=== PATIENT | female | born 1980 | race Caucasian/White ===

== ENCOUNTER 2024-05-23 16:38 | Emergency (ER) | payer BC, SELFPAY ==
[2024-05-23] VITALS (7 sets, daily range): BP systolic 102–119; BP diastolic 59–68; PULSE 68–74; BMI 39.3
[2024-05-23] MEDS: NSS 1000 IV (18:20)
[2024-05-23 18:30] LABS: % Basophils 0.3 % (0-2); % Eosinophils 1.5 % (0-6); % Immature Granulocytes 0.4 % (0-0.5); % Lymphocytes 23.4 % (20.5-51.1); % Monocytes 7.1 % (1.7-9.3); % Neutrophils 67.3 % (42.2-75.2); Absolute Eosinophils 0.2 10^3/uL (0-0.7); Absolute Immature Granulocytes 0.1 10^3/uL (0-0.05); Absolute Lymphocytes 3.2 10^3/uL (1.2-3.4); Absolute Neutrophils 9.3 10^3/uL (1.4-6.5); Hematocrit 38.6 % (37.0-47.0); Hemoglobin 13.3 g/dL (12.0-16.0); Mean Corp Hgb Conc. 34.5 g/dL (33.0-37.0); Mean Corpuscular Hgb 31.1 pg (27.0-31.0); Mean Corpuscular Volume 90.4 fL (81.0-99.0); Mean Platelet Volume 9.9 fL (7.4-10.4); Nucleated Red Blood Cells % 0 %; Platelet Count 211 10^3/uL (130-400); Red Blood Cell Count 4.27 10^6/uL (4.20-5.40); Red Cell Dist. Width 12.4 % (11.5-14.5); White Blood Cell Count 13.8 10^3/uL (4.8-10.8)
[2024-05-23 18:43] LABS: HCG, Serum Qualitative Screen Negative
[2024-05-23 18:47] LABS: ALT (SGPT) 20 U/L (0-35); AST (SGOT) 20 U/L (14-36); Albumin 3.9 g/dl (3.5-5.0); Alkaline Phosphatase 62 U/L (38-126); Blood Urea Nitrogen 15 mg/dl (7-17); Calcium 9.1 mg/dl (8.4-10.2); Carbon Dioxide 24 mmol/L (22-30); Chloride 106 mmol/L (98-107); Estimated Creatinine Clearance 123 ml/min; Glucose 126 mg/dl (70-99); Sodium 137 mmol/L (135-145); Total Bilirubin 0.5 mg/dl (0.2-1.3); Total Protein 6.4 g/dl (6.3-8.2); eGFR > 60.00
--- NOTE | 2024-05-23 19:30 | ED.GENMED ---
History of Present Illness
General
Chief Complaint: Dizziness
Source: patient and spouse
Exam Limitations: none
Time Seen by Provider: 05/23/24 17:51
Nursing documentation reviewed up to this point in time: agreed with
History of Present Illness
History of Present Illness:
43-year-old female presenting to the emergency department today with concerns of 4 episodes of feeling lightheaded somewhat dizzy today made worse with changes in positioning. Has had similar episodes many times in the past. Was seen in urgent
care and sent to the ER today. Denies chest pain shortness breath or palpitations. Never fully lost consciousness.
Review of Systems
Review of Systems
Allergies reviewed?: Yes
All Other Systems: ROS reviewed and negative except as documented in HPI and ROS
Phy Exam
Physical Exam
Physical Exam:
GENERAL: Alert , in no apparent distress
EYE: pupils equal and reactive
NECK: Supple, no significant adenopathy.
ENT: o/p clr, mmm.
CARDIAC: Regular rate and rhythm .
LUNGS: Clear breath sounds bilaterally, no acute respiratory distress, no wheezes/rales/rhonchi
ABDOMEN: Soft, without focal tenderness, no r/g, no cvat
NEUROLOGICAL: Alert and oriented, no focal neuro deficits 5 out of 5 upper and lower extremity strength normal sensation when palpating bilaterally normal finger-nose and [id number] no pronator drift
SKIN: Warm and dry, skin intact.
MUSCULOSKELETAL: No edema, well perfused.
PSYCH: Normal and appropriate interaction.
Course
Orders/Labs/Results
Orders:
Orders
05/23/24 16:45
EKG [Electrocardiogram (*1)] Urgent
Reason for Study: Vertigo / Dizzy
EKG- Treatment ONCE
05/23/24 18:03
Cardiac Monitoring- Treatment ONCE
Orthostatic VS- Treatment ONCE
0.9% Sodium Chloride 1000 ml [Nss] 1,000 ml IV BOLUS
05/23/24 18:04
CT Head W/o Iv Contrast Urgent
Comment:
Reason For Exam: left sided head pain oressure, syncope
Test Result ONCE
05/23/24 18:19
Beta Hcg Serum Qualitative Screen [HCG, Serum Qualitative Screen] Urgent
CBC/With Diff [Complete Blood Count/With Diff] Urgent
CMP [Comprehensive Metabolic Panel] Urgent
Abnormal Lab Results
05/23/24
18:19
WBC 13.8 H 10^3/uL
(4.8-10.8)
MCH 31.1 H pg
(27.0-31.0)
Abs Immat Gran (auto) 0.1 H 10^3/uL
(0-0.05)
Absolute Neuts (auto) 9.3 H 10^3/uL
(1.4-6.5)
Absolute Monos (auto) 1.0 H 10^3/uL
(0.1-0.6)
Glucose 126 H mg/dl
(70-99)
05/23/24 18:19
05/23/24 18:19
Vital Signs
Initial and Last Documented VS:
Initial Vital Signs
Temp Pulse Resp BP Pulse Ox
98.5 F 80 18 119/68 98
05/23/24 16:42 05/23/24 16:42 05/23/24 16:42 05/23/24 16:42 05/23/24 16:42
Last Documented Vital Signs
Temp Pulse Resp BP Pulse Ox
98.5 F 67 13 111/68 98
05/23/24 16:42 05/23/24 21:00 05/23/24 21:00 05/23/24 20:02 05/23/24 16:42
MDM/Problems Addressed
MDM/Problems Addressed:
43-year-old female presenting to the emergency department today with concerns of 4 episodes where she felt lightheaded that she can pass out and also felt some dizziness room spinning. Currently feels somewhat tired but no specific symptoms
neurologically intact here. Vital signs are normal here. Labs with a very slight white count of 13.8 but no additional laboratory findings. EKG is normal. CT scan obtained due to the ongoing pressure sensation in the left side of her head. This
did not show any emergent findings. No evidence of emergent pathology causing symptoms. She could be having intermittent vertigo symptoms likely from peripheral source. Plan for outpatient follow-up. Return precautions given.
*Critical Care Note
Total Time (30-74mins, 75-104mins- exclusive of procedures): Not Applicable
ED Attending Note
-
Portions of this chart may have been created with voice recognition software.� Occasional wrong word or��sound alike� substitutions may have occurred due to the inherent limitations of voice recognition software.
Discharge Plan
Departure
Patient Disposition: Home (Routine Discharge)
Date of Disposition: 05/23/24
Time of Disposition: 21:00
Patient with high blood pressure during this ER visit?: No
Condition: Good
Covid-19: Not Applicable
Discharge Problem:
Dizziness
Instructions: Dizziness
Prescriptions:
New
meclizine 25 mg tablet
25 mg PO BID PRN (Reason: dizziness) Qty: 7 0RF
Referrals:
Daniella Cash MD [Family Provider] -
Activity Restrictions/Additional Instructions:
You came to the emergency department today with concerns of dizziness. Here you have a reassuring assessment. Please take meclizine as needed. Please follow-up with vestibular therapy. Their phone number is [phone]. Return for any worsening,
new or concerning symptoms.
Interventions
Interventions:
*Risk Screen - Suicide Last Done: 05/23/24 16:42
*General Assessment Last Done: 05/23/24 16:42
*Neglect/Abuse Screening Last Done: 05/23/24 18:23
*ED- Fall Risk Assessment Last Done: 05/23/24 16:42
*ED COVID-19 Vaccine History Last Done: 05/23/24 16:42
*Nursing Disposition Last Done: 05/23/24 21:27
ED- Neurological Assessment Last Done: 05/23/24 18:23
ED- Cardiac Assessment Last Done: 05/23/24 18:23
ED Swallowing Screen Last Done: 05/23/24 20:27
Discharge Date and Time
Discharge Date/Time: 05/23/24 21:27
Print Language: DANISH
== END 2024-05-23 21:27 | disposition home or self-care (01) ==
LOC: EMR 16:38
PROVIDERS: Physician Assistant; EMERGENCY PHYSICIAN Emergency Medicine; FAMILY PHYSICIAN Family Medicine
DX: R42 Dizziness and giddiness (principal)
CPT/HCPCS: 99284; 96360; 70450; 80053; 84703; 85025; 93005